=== PATIENT | male | born 1985 | race Caucasian/White ===

== ENCOUNTER 2018-06-27 17:44 | Emergency (ER) | payer OTHER ==
[~2018-06-27] VITALS: Ht 193 cm; Wt 86.4 kg
[2018-06-27 18:00] VITALS: BP 117/74
[2018-06-27] MEDS ORDERED: DIPH,PERTUSS(ACELL),TET VAC/PF 0.5 ML IM-VACC ONE ×2 (18:30→18:33)
[2018-06-27] MEDS ORDERED: BACITRACIN ZINC OINT 500U/GM, 0.9 GM ONE (19:24)
== END 2018-06-27 19:40 | disposition home or self-care (01) ==
LOC: EDBD 17:44 → ED 19:03
DX: S51.851A Open bite of right forearm, initial encounter (principal); W54.0XXA Bitten by dog, initial encounter; Y93.89 Activity, other specified; Y92.410 Unspecified street and highway as the place of occurrence of the external cause; Y99.8 Other external cause status
CPT/HCPCS: 99284